=== PATIENT | male | born 2000 | race Hispanic/Latino ===

== ENCOUNTER → 2023-03-17 | Emergency (ER) | payer OTHER, SELFPAY ==
[~2023-03-17] MED LIST: FAMOTIDINE 20 MG/2 ML VIAL IV ONE; MAGNES/ALUMIN/SIMET 30ML UCUP ONE; NA CHLORIDE 0.9% 1,000 ML ONE
[2023-03-17 09:16] LABS: Absolute Lymphocytes (CBC) 2.1 K/uL (0.7-4.9); Hematocrit 45.1 % (39.6-49.0); Lymphocytes % 37.9 % (15.3-44.8); MCV 90.1 fL (80-100); MPV 7.8 fL (7.6-11.3); Platelets 268 thou/uL (152-406); RBC Red Blood Cell Count 5.01 M/uL (4.33-5.43)
[2023-03-17 09:34] LABS: Albumin 4.1 g/dL (3.4-5.0); Bilirubin Total 0.9 mg/dL (0.2-1.0); Potassium 3.8 mEq/L (3.5-5.1); Protein, Total 7.9 g/dL (6.4-8.2)
--- NOTE | 2023-03-17 09:41 | EDPHYS ---
Physician Documentation [facility] Name: Daniel Posey Age: 23 yrs Sex: Male : 2000 Arrival Date: 03/17/2023 Time: 08:47 Bed 8 Private MD: ED Physician Lupillo Chery HPI: 03/17 09:03 This 23 yrs old Male presents to ER via Ambulatory with complaints of ec2 Abdominal Pain. 09:03 Patient arrives today for evaluation of left-sided abdominal pain. Patient reports he ec2 has been having left-sided abdominal pain for the past 3 days. Patient reports no nausea or vomiting, reports no diarrheal symptoms. Patient reports no previous abdominal surgeries. Denies any cough and cold symptoms, did report some headache yesterday. States that he was given some medication for stomach that helped yesterday and subsequently pain returned shortly after. Reports no changes in symptoms with p.o. intake.. Historical: - Allergies: 08:54 No Known Allergies; iw - Home Meds: 08:54 None [Active]; iw - PMHx: 08:54 None; iw - PSHx: 08:54 None; iw - Immunization history:: Adult Immunizations up to date. - Social history:: Smoking status: Patient denies any tobacco usage or history of. ROS: 09:03 Constitutional: as per hpi ec2 Exam: 09:03 Constitutional: GEN: NAD Head: atraumatic Eyes: EOMI Ears: External ears are ec2 normal. CV: regular rate LUNGS: no respiratory distress ABD: non-distended, soft, not guarding, not rigid, minimally tender in the left upper and lower quadrant. SKIN: no evidence of rashes MSK: no evidence of trauma NEURO: moves all extremities equally Vital Signs: 08:54 BP 129 / 72; Pulse 67; Resp 16; Temp 98(O); Pulse Ox 100% on R/A; Weight 58.06 kg; iw Height 5 ft. 10 in. ; 09:17 BP 121 / 75; Pulse 52; Resp 16; Pulse Ox 100% on R/A; hb 10:05 BP 113 / 67; Pulse 58; Resp 14; Pulse Ox 100% ; ko1 08:54 Body Mass Index 18.37 (58.06 kg, 177.8 cm) iw MDM: 08:57 Patient medically screened. ec2 09:03 Data reviewed: vital signs. ED course: Patient arrives today due to concern for ec2 left-sided abdominal pain. Examination remarkable for well-appearing nontoxic individual is otherwise in no acute distress with a reassuring abdominal examination with minimal TTP to the left side of the abdomen. Will obtain lab work to evaluate for electrolyte disturbances as well as renal dysfunction, anemia, will treat the patient's symptoms with crystalloid, Pepcid and Maalox. Currently considering those above processes along with gastritis, lower suspicion for diverticulitis given the patient's age and no other risk factors.. 09:38 ED course: Metabolic profile is reassuring, CBC without leukocytosis or anemia evident. ec2 . 09:41 ED course: On reassessment patient reports improvement in his symptoms. Will discharge ec2 home, suspect gastritis causing his symptoms. Return precautions given.. 03/17 09:02 Order name: CBC with Diff; Complete Time: 09:37 ec2 03/17 09:02 Order name: CMP; Complete Time: 09:37 ec2 03/17 09:02 Order name: UAM ec2 Administered Medications: 09:12 Drug: NS 0.9% IV 1000 ml IV at 1 bolus Per protocol; 1000 mL bolus Route: IV; Rate: 1 ko1 bolus; Site: right antecubital; 10:07 Follow up: Response: No adverse reaction; IV Status: Completed infusion; IV Intake: ko1 1000ml 09:12 Drug: Famotidine IVP 10 mg IVP once; dilute with 10 mL 0.9% NaCl; give over 2 minutes ko1 Route: IVP; Site: right antecubital; 10:07 Follow up: Response: No adverse reaction; Marked relief of symptoms ko1 09:13 Drug: Alum-Mag Hydroxide-Simeth PO Suspension (200 mg-200 mg-20 mg/5 mL) 30 ml PO once ko1 Route: PO; 10:07 Follow up: Response: No adverse reaction ko1 Disposition Summary: 03/17/23 09:41 Discharge Ordered Notes: Location: Home ec2 Condition: Stable ec2 Diagnosis - Acute gastritis ec2 Followup: ec2 - With: Private Physician - When: - Reason: Recheck today's complaints Discharge Instructions: - Discharge Summary Sheet ec2 - Gastritis, Adult, [id number] ec2 Forms: - Work release form ec2 - Medication Reconciliation Form ec2 - Thank You Letter ec2 - Antibiotic Education ec2 - Prescription Opioid Use ec2 - Patient Portal Instructions ec2 - Leadership Thank You Letter ec2 Prescriptions: - Pepcid 20 mg Oral Tablet - take 1 tablet ORAL route once daily; 20 tablet; Refills: 0, Product Selection ec2 Permitted Signatures: Dispatcher [employer] Larissa Cardenas RN RN iw Verna Stockton RN RN ko1 Lupillo Chery MD MD ec2 Corrections: (The following items were deleted from the chart) 08:58 08:58 Pelvic Exam Setup ordered. ec2 ec2
--- NOTE | 2023-03-17 09:41 | ER ---
Nurse's Notes [facility] Name: Daniel Posey Age: 23 yrs Sex: Male : 2000 Arrival Date: 03/17/2023 Time: 08:47 Bed 8 Private MD: Diagnosis: Acute gastritis Presentation: 03/17 08:53 Chief complaint: Patient states: left sided abd pain X 3 days, this morning it was iw worse and he has a headache, not eating much , denies vomiting or diarrhea. Coronavirus screen: At this time, the client does not indicate any symptoms associated with coronavirus-19. Ebola Screen: Patient negative for fever greater than or equal to 101.5 degrees Fahrenheit, and additional compatible Ebola Virus Disease symptoms Patient denies exposure to infectious person. Patient denies travel to an Ebola-affected area in the 21 days before illness onset. No symptoms or risks identified at this time. Initial Sepsis Screen: Does the patient meet any 2 criteria? No. Patient's initial sepsis screen is negative. Does the patient have a suspected source of infection? No. Patient's initial sepsis screen is negative. Risk Assessment: Do you want to hurt yourself or someone else? Patient reports no desire to harm self or others. Onset of symptoms was March 14, 2023. 08:53 Method Of Arrival: Ambulatory iw 08:53 Acuity: CHRIS 3 iw Triage Assessment: 10:06 General: Appears in no apparent distress. Behavior is calm, cooperative, appropriate ko1 for age. Historical: - Allergies: 08:54 No Known Allergies; iw - Home Meds: 08:54 None [Active]; iw - PMHx: 08:54 None; iw - PSHx: 08:54 None; iw - Immunization history:: Adult Immunizations up to date. - Social history:: Smoking status: Patient denies any tobacco usage or history of. Screenin:00 [facility] ED Fall Risk Assessment (Adult) History of falling in the last 3 months, ko1 including since admission No falls in past 3 months (0 pts) Confusion or Disorientation No (0 pts) Intoxicated or Sedated No (0 pts) Impaired Gait No (0 pts) Mobility Assist Device Used No (0 pt) Altered Elimination No (0 pt) Score/Fall Risk Level 0 - 2 = Low Risk Oriented to surroundings, Maintained a safe environment, Educated pt \T\ family on fall prevention, incl call for assistance when getting out of bed, Assessed \T\ reinforced patient's understanding of fall precautions, Provided non-skid footwear, Hourly rounding (assess needs \T\ fall precautionary measures) done, Used ambulatory aids as needed (educated on \T\ assisted with), Used gait belt as appropriate. Abuse screen: Denies threats or abuse. Denies injuries from another. Nutritional screening: No deficits noted. Tuberculosis screening: No symptoms or risk factors identified. Assessment: 09:00 Pain: Complains of pain in left upper quadrant and left lower quadrant. Neuro: No ko1 deficits noted. Cardiovascular: No deficits noted. Respiratory: No deficits noted. GI: Bowel sounds present X 4 quads. Abd is soft and non tender X 4 quads. Reports lower abdominal pain. : No deficits noted. EENT: No deficits noted. Derm: No deficits noted. Musculoskeletal: No deficits noted. Vital Signs: 08:54 BP 129 / 72; Pulse 67; Resp 16; Temp 98(O); Pulse Ox 100% on R/A; Weight 58.06 kg; iw Height 5 ft. 10 in. ; 09:17 BP 121 / 75; Pulse 52; Resp 16; Pulse Ox 100% on R/A; hb 10:05 BP 113 / 67; Pulse 58; Resp 14; Pulse Ox 100% ; ko1 08:54 Body Mass Index 18.37 (58.06 kg, 177.8 cm) iw ED Course: 08:52 Patient arrived in ED. ts1 08:54 Triage completed. iw 08:54 Arm band placed on. iw 08:56 Verna Stockton, CATARINA is Primary Nurse. ko1 08:57 Lupillo Chery MD is Attending Physician. ec2 09:00 Patient has correct armband on for positive identification. Bed in low position. Call ko1 light in reach. Pulse ox on. NIBP on. Door closed. Noise minimized. Lights dimmed. Warm blanket given. 09:10 Inserted saline lock: 20 gauge in left antecubital area, using aseptic technique. Blood ko1 collected. 09:12 CMP Sent. ko1 09:12 CBC with Diff Sent. ko1 10:05 Provided Education on: na. ko1 10:05 No provider procedures requiring assistance completed. IV discontinued, intact, ko1 bleeding controlled, No redness/swelling at site. Pressure dressing applied. Administered Medications: 09:12 Drug: NS 0.9% IV 1000 ml IV at 1 bolus Per protocol; 1000 mL bolus Route: IV; Rate: 1 ko1 bolus; Site: right antecubital; : Follow up: Response: No adverse reaction; IV Status: Completed infusion; IV Intake: ko1 1000ml 09:12 Drug: Famotidine IVP 10 mg IVP once; dilute with 10 mL 0.9% NaCl; give over 2 minutes ko1 Route: IVP; Site: right antecubital; : Follow up: Response: No adverse reaction; Marked relief of symptoms ko1 09:13 Drug: Alum-Mag Hydroxide-Simeth PO Suspension (200 mg-200 mg-20 mg/5 mL) 30 ml PO once ko1 Route: PO; : Follow up: Response: No adverse reaction ko1 Medication: 09:00 VIS not applicable for this client. ko1 Intake: :07 IV: 1000ml; Total: 1000ml. ko1 Outcome: 09:41 Discharge ordered by . ec2 10:05 Discharged to home ambulatory, ko1 10:05 Condition: improved 10:05 Discharge instructions given to patient, Instructed on discharge instructions, follow up and referral plans. medication usage, Demonstrated understanding of instructions, follow-up care, medications, Prescriptions given X 1, 10:07 Patient left the ED. ko1 Signatures: Larissa Cordoba RN RN iw Autumn Rojas RN RN hb Oliver, Kathy, RN RN ko1 Stephany Renner PAS PAS ts1 Lupillo Chery MD MD ec2 Corrections: (The following items were deleted from the chart) 09:04 08:54 BP 129 / 72; Pulse 67bpm; Resp 16bpm; Pulse Ox 100% RA; 58.06 kg; Height 5 ft. 10 iw in.; BMI: 18.3; iw
[2023-03-17 13:06] VITALS: TEMP 98; O2SAT 100
[2023-03-17 13:13] VITALS: BP 113/67
== END ==
LOC: ER 08:47
DX: K29.00 Acute gastritis without bleeding (principal)
CPT/HCPCS: 36415; 80053; 85025; 96361; 96374; 99284; J7030

== ENCOUNTER 2023-08-18 12:10 | Emergency (ER) | payer SELFPAY ==
--- OUTSIDE RECORDS SUMMARY | 2023-08-18 12:12 | XMS REPORT | Continuity of Care Document ---
Author Name Unknown Address [address] [place] [address] [employer] Address [address] [place] [address] Care Team Providers Care Entertainment Dancer Name Role Phone Unavailable Unavailable Unavailable Results Test Description Test Time Test Comments Results Result Co mments Source
[2023-08-18 12:51] LABS: SARS-CoV-2 Antigen CONTROL BLUE LINE VIS/BG OK; SARS-CoV-2 Antigen Rapid Res Negative (Negative)
--- NOTE | 2023-08-18 13:42 | ER ---
Nurse's Notes [facility] Name: Daniel Posey Age: 23 yrs Sex: Male : 2000 Arrival Date: 08/18/2023 Time: 12:10 Bed IW1 Private MD: Diagnosis: Sore throat Presentation: 08/17 12:18 Chief complaint: Patient states: body aches, sore throat. Coronavirus screen: At this as6 time, the client does not indicate any symptoms associated with coronavirus-19. Ebola Screen: No symptoms or risks identified at this time. Initial Sepsis Screen: Does the patient meet any 2 criteria? No. Patient's initial sepsis screen is negative. Does the patient have a suspected source of infection? No. Patient's initial sepsis screen is negative. Risk Assessment: Do you want to hurt yourself or someone else? Patient reports no desire to harm self or others. Onset of symptoms was August 18, 2023. 12:18 Method Of Arrival: Ambulatory as6 12:18 Acuity: CHRIS 4 as6 Triage Assessment: 12:23 General: Appears in no apparent distress. slender, Behavior is calm, cooperative. as6 General: Reports feeling ill for fatigue for. Pain: Complains of pain in generalized. EENT: Reports pain when swallowing. Historical: - Allergies: 12:19 No Known Allergies; as6 - PMHx: 12:19 None; as6 - PSHx: 12:19 None; as6 - Immunization history:: Adult Immunizations up to date. - Infectious Disease History:: Denies. - Social history:: Smoking status: Reported history of juuling and/or vaping. Screenin:24 [facility] ED Fall Risk Assessment (Adult) History of falling in the last 3 months, as6 including since admission No falls in past 3 months (0 pts) Confusion or Disorientation No (0 pts) Intoxicated or Sedated No (0 pts) Impaired Gait No (0 pts) Mobility Assist Device Used No (0 pt) Altered Elimination No (0 pt) Score/Fall Risk Level 0 - 2 = Low Risk Oriented to surroundings, Maintained a safe environment, Educated pt \T\ family on fall prevention, incl call for assistance when getting out of bed, Assessed \T\ reinforced patient's understanding of fall precautions. Abuse screen: Denies threats or abuse. Denies injuries from another. Nutritional screening: No deficits noted. Tuberculosis screening: No symptoms or risk factors identified. Vital Signs: 12:19 BP 119 / 77; Pulse 76; Resp 18 S; Temp 97.6(TE); Pulse Ox 100% on R/A; Weight 58.97 kg as6 (R); Height 5 ft. 10 in. (R); Pain 6/10; 12:19 Body Mass Index 18.65 (58.97 kg, 177.8 cm) as6 12:19 Pain Scale: Adult as6 ED Course: 12:13 Patient arrived in ED. rg4 12:14 Link Castro DO is Attending Physician. ms3 12:18 Triage completed. as6 12:18 Arm band placed on. as6 12:24 Patient has correct armband on for positive identification. Bed in low position. Call as6 light in reach. 13:41 Jeffrey Willard DO is Referral Physician. ms3 13:45 Provided Education on: OCT medications to manage viral illness . as6 13:45 No provider procedures requiring assistance completed. Patient did not have IV access as6 during this emergency room visit. Administered Medications: No medications were administered Medication: 12:24 VIS not applicable for this client. as6 Outcome: 13:41 Discharge ordered by . ms3 13:45 Discharged to home ambulatory, as6 13:45 Condition: stable 13:45 Discharge instructions given to patient, 13:46 Patient left the ED. as6 Signatures: Kavita Oneil rg4 Link Castro DO DO ms3 Dannie Clinton, RN RN as6
--- NOTE | 2023-08-18 13:43 | EDPHYS ---
Physician Documentation [facility] Name: Daniel Posey Age: 23 yrs Sex: Male : 2000 Arrival Date: 08/18/2023 Time: 12:10 Bed IW1 Private MD: ED Physician Link Castro HPI: 08/17 14:32 This 23 yrs old Male presents to ER via Ambulatory with complaints of Sore ms3 Throat. 14:32 23-year-old male with no past medical history presents emergency department for sore ms3 throat, body aches, abdominal pain that began yesterday. Patient states his overall discomfort is a 6/10. He endorses cough and rhinorrhea. Patient denies any alleviating or inciting factors. Historical: - Allergies: 12:19 No Known Allergies; as6 - PMHx: 12:19 None; as6 - PSHx: 12:19 None; as6 - Immunization history:: Adult Immunizations up to date. - Infectious Disease History:: Denies. - Social history:: Smoking status: Reported history of juuling and/or vaping. ROS: 14:32 Constitutional: Negative for fever, and chills. Neck: Negative for injury, pain, and ms3 swelling, Cardiovascular: Negative for chest pain, and palpitations. Respiratory: Negative for shortness of breath, cough, wheezing, and pleuritic chest pain, 14:32 ENT: Positive for sore throat, 14:32 Abdomen/GI: Positive for abdominal pain, 14:32 All other systems are negative, Exam: 14:32 Constitutional: This is a well developed, well nourished patient who is awake, alert, ms3 and in no acute distress. Head/Face: Normocephalic, atraumatic. Neck: Trachea midline, no cervical lymphadenopathy. Supple, full range of motion without nuchal rigidity, or vertebral point tenderness. No Meningismus. Chest/axilla: Normal chest wall appearance and motion. Nontender with no deformity. Cardiovascular: Regular rate and rhythm with a normal S1 and S2. No gallops, murmurs, or rubs. Normal PMI, no JVD. No pulse deficits. Respiratory: Lungs have equal breath sounds bilaterally, clear to auscultation and percussion. No rales, rhonchi or wheezes noted. No increased work of breathing, no retractions or nasal flaring. Abdomen/GI: Soft, non-tender, with normal bowel sounds. No distension or tympany. No guarding or rebound. No evidence of tenderness throughout. Skin: Warm, dry with normal turgor. Normal color with no rashes, no lesions, and no evidence of cellulitis. MS/ Extremity: Pulses equal, no cyanosis. Neurovascular intact. Full, normal range of motion. Vital Signs: 12:19 BP 119 / 77; Pulse 76; Resp 18 S; Temp 97.6(TE); Pulse Ox 100% on R/A; Weight 58.97 kg as6 (R); Height 5 ft. 10 in. (R); Pain 6/10; 12:19 Body Mass Index 18.65 (58.97 kg, 177.8 cm) as6 12:19 Pain Scale: Adult as6 MDM: 12:21 Patient medically screened. ms3 14:32 Differential diagnosis: bronchitis, group A strep tonsillitis, upper respiratory ms3 infection, viral syndrome COVID versus flu. Data reviewed: vital signs, nurses notes, lab test result(s), and as a result, I will discharge patient. Counseling: I had a detailed discussion with the patient and/or guardian regarding the historical points, exam findings, and any diagnostic results supporting the discharge/admit diagnosis, lab results, the need for outpatient follow up, to return to the emergency department if symptoms worsen or persist or if there are any questions or concerns that arise at home. Special discussion: I discussed with the patient/guardian in detail that at this point there is no indication for admission to the hospital. It is understood, however, that if the symptoms persist or worsen the patient needs to return immediately for re-evaluation. ED course: Discussed labs with patient. Patient to follow-up with primary care physician 2 to 3 days. Patient understands and agrees with plan. All questions were answered. Return precautions discussed include worsening symptoms, or any other concerns. On reevaluation patient is alert and oriented x 4, no apparent distress, nontoxic-appearing, ambulatory in the emergency department. 08/17 12:19 Order name: Influenza Screen (a \T\ B); Complete Time: 13:21 as6 08/17 12:19 Order name: SARS RAPID; Complete Time: 13:21 as6 08/17 12:19 Order name: Strep; Complete Time: 13:21 as6 08/17 12:47 Order name: Throat Culture EDMS Administered Medications: No medications were administered Disposition Summary: 08/18/23 13:41 Discharge Ordered Notes: Location: Home ms3 Condition: Stable ms3 Diagnosis - Sore throat ms3 Followup: ms3 - With: Jeffrey Willard DO - When: 2 - 3 days - Reason: Recheck today's complaints Discharge Instructions: - Discharge Summary Sheet ms3 - Viral Illness, Adult ms3 Forms: - Work release form iw - Medication Reconciliation Form ms3 - Antibiotic Education ms3 - Prescription Opioid Use ms3 - Patient Portal Instructions ms3 - Leadership Thank You Letter ms3 Signatures: Dispatcher [employer] EDLink Manuel DO DO ms3 Dannie Clinton, RN RN as6
[2023-08-18 14:24] VITALS: BP 119/77; TEMP 97.6; O2SAT 100
== END 2023-08-18 13:46 | disposition home or self-care (01) ==
LOC: ER 12:10
DX: J02.9 Acute pharyngitis, unspecified (principal); Z11.52 Encounter for screening for COVID-19
CPT/HCPCS: 36415; 87070; 87081; 87804; 87811; 99282

== ENCOUNTER 2023-08-30 07:42 | Emergency (ER) | payer SELFPAY ==
--- OUTSIDE RECORDS SUMMARY | 2023-08-30 07:44 | XMS REPORT | Continuity of Care Document ---
Author Name Unknown Address [address] [place] [address] [employer] Address [address] [place] [address] Care Team Providers Care Forex Trader Name Role Phone Unavailable Unavailable Unavailable Results Test Description Test Time Test Comments Results Result Co mments Source
[2023-08-30] MEDS ORDERED: ONDANSETRON 4 MG/2 ML VIAL ONE (08:08)
[2023-08-30] MEDS ORDERED: NA CHLORIDE 0.9% 1,000 ML ONE (08:08)
[2023-08-30 08:43] LABS: Absolute Lymphocytes (CBC) 1.4 K/uL (0.7-4.9); Absolute Monocytes 0.7 K/uL (0.1-1.3); Absolute Neutrophil 4.1 K/uL (1.8-8.0); Basophils % 0.4 % (0-1.3); Eosinophils % 0.2 % (0-4.4); Hematocrit 43.1 % (39.6-49.0); Hemoglobin 14.7 g/dL (13.6-17.9); Lymphocytes % 22.2 % (15.3-44.8); MCH 30.4 pg (27.0-35.0); MCV 89.2 fL (80-100); MPV 8.1 fL (7.6-11.3); Monocytes % 11.5 % (3.3-12.3); Neutrophils % 65.7 % (41.7-73.7); Platelets 241 thou/uL (152-406); RBC Red Blood Cell Count 4.83 M/uL (4.33-5.43); Red Cell Distribution Width 12.4 % (12.1-15.2)
--- NOTE | 2023-08-30 08:49 | RAD REPORT ---
EXAM DESCRIPTION: CTAbdomen Pelvis W Contrast - 08/30/2023 8:40 am CLINICAL HISTORY: Abdominal pain. Abd pain;Nausea / vomiting COMPARISON: No comparisons TECHNIQUE: Biphasic CT imaging of the abdomen and pelvis was performed with 100 ml non-ionic IV cont rast. All CT scans are performed using dose optimization technique as appropriate and may include automated exposure control or mA/KV adjustment according to patient size. FINDINGS: The lung bases are clear. The liver, spleen, pancreas, adrenal glands and kidneys are within normal limits. No bowel obstruction, free air, free fluid or abscess. The appendix is not identified as a discrete structure, however, no secondary findings of appendicitis are identified. Small volume of pelvic ena e fluid. No evidence of significant lymphadenopathy. No suspicious bony findings. IMPRESSION: No acute intra-abdominal or pelvic finding. Small volume of pelvic free fluid.
[2023-08-30 09:03] LABS: Albumin 3.8 g/dL (3.4-5.0); Anion Gap 6.8 mEq/L (5.0-15.0); Bilirubin Total 0.8 mg/dL (0.2-1.0); Globulin 3.8 g/dL (2.3-3.5); Potassium 3.8 mEq/L (3.5-5.1); Protein, Total 7.6 g/dL (6.4-8.2)
--- NOTE | 2023-08-30 09:19 | EDPHYS ---
Physician Documentation [facility] Name: Daniel Posey Age: 23 yrs Sex: Male : 2000 Arrival Date: 08/30/2023 Time: 07:42 Bed 19 Private MD: ED Physician Duane Dalton HPI: 08/29 09:14 This 23 yrs old Male presents to ER via Ambulatory with complaints of Vomiting.rn 09:14 The patient presents to the emergency department with nausea, vomiting, diarrhea. rn Onset: The symptoms/episode began/occurred 3 day(s) ago. Possible causes: unknown. The symptoms are aggravated by nothing. The symptoms are alleviated by nothing. Associated signs and symptoms: Pertinent positives: diarrhea, nausea, vomiting, Pertinent negatives: abdominal pain, fever, GI bleeding. Severity of symptoms: At their worst the symptoms were moderate in the emergency department the symptoms have improved. The patient has not experienced similar symptoms in the past. Patient reports 3 days of nausea/vomiting/diarrhea. No current abdominal pain. States brother is sick with similar symptoms as well. States Imodium is helping with diarrhea but still vomiting.. Historical: - Allergies: 08:05 No Known Allergies; ap3 - Home Meds: 08:05 None [Active]; ap3 - PMHx: 08:05 None; ap3 - Immunization history:: Client reports having NOT received the Covid vaccine. - Infectious Disease History:: Denies. - Social history:: Smoking status: Reported history of juuling and/or vaping. - Family history:: not pertinent. - Hospitalizations: : No recent hospitalization is reported. ROS: 09:14 Constitutional: Negative for fever, chills, and weight loss, Cardiovascular: Negative rn for chest pain, palpitations, and edema, Respiratory: Negative for shortness of breath, cough, wheezing, and pleuritic chest pain, Abdomen/GI: Positive for vomiting and diarrhea MS/Extremity: Negative for injury and deformity, Skin: Negative for injury, rash, and discoloration, Neuro: Negative for headache, weakness, numbness, tingling, and seizure, Exam: 09:14 Constitutional: This is a well developed, well nourished patient who is awake, alert, rn and in no acute distress. Cardiovascular: Regular rate and rhythm. No pulse deficits. Respiratory: No increased work of breathing, no retractions or nasal flaring. Abdomen/GI: Soft, nontender, no guarding or rebound Vital Signs: 08:04 BP 126 / 54; Pulse 66; Resp 18; Temp 97.8(O); Pulse Ox 100% ; Weight 58.97 kg; Pain ap3 0/10; 08:46 BP 120 / 77; Pulse 62; Resp 17; Pulse Ox 99% on R/A; rs5 09:22 BP 118 / 76; Pulse 65; Resp 18; Pulse Ox 99% on R/A; rs5 08:04 Pain Scale: Adult ap3 MDM: 07:47 Patient medically screened. rn 09:14 Differential diagnosis: Nonspecific abd pain, gastritis, cholecystitis, pancreatitis, rn appendicitis, diverticulitis, viral gastroenteritis, gastroenteritis. Data reviewed: vital signs, nurses notes, lab test result(s), radiologic studies, CT scan, and as a result, I will discharge patient. Counseling: I had a detailed discussion with the patient and/or guardian regarding the historical points, exam findings, and any diagnostic results supporting the discharge/admit diagnosis, lab results, radiology results, the need for outpatient follow up, to return to the emergency department if symptoms worsen or persist or if there are any questions or concerns that arise at home. Special discussion: Based on the patient's Hx, exam, and Dx evaluation, there is no indication for emergent surgery or inpatient Tx. It is understood by the patient/guardian that if the Sx's persist or worsen they need to return immediately for re-evaluation. I discussed with the patient/guardian in detail that at this point there is no indication for admission to the hospital. It is understood, however, that if the symptoms persist or worsen the patient needs to return immediately for re-evaluation. ED course: No acute findings and workup. I have personally reviewed all of the results, including but not limited to blood tests and imaging deemed necessary to safely discharge this patient at this time. All results given to and printed out for patient. I personally went over all the results with the patient and answered all questions. Patient will follow-up with PCP and or specialist as discussed. Return precautions given and understood.. 08/29 08:03 Order name: CBC with Diff; Complete Time: 08:55 rn 08/29 08:03 Order name: CMP; Complete Time: 09:06 rn 08/29 08:03 Order name: Lipase; Complete Time: 09:06 rn 08/29 08:03 Order name: CT Abd/Pelvis - IV Contrast Only; Complete Time: 08:55 rn 08/29 08:03 Order name: IV Saline Lock; Complete Time: 08:41 rn 08/29 08:03 Order name: Labs collected and sent; Complete Time: 08:41 rn Administered Medications: 08:15 Drug: NS 0.9% IV 1000 ml IV at 1 bolus Per protocol; 1000 mL bolus Route: IV; Rate: 1 rs5 bolus; Site: left antecubital; 08:30 Follow up: Response: No adverse reaction rs5 08:15 Drug: Ondansetron IVP 4 mg IVP once; over 2 minutes Route: IVP; Site: left antecubital; rs5 08:30 Follow up: Response: No adverse reaction; Nausea is decreased rs5 Disposition Summary: 08/30/23 09:18 Discharge Ordered Notes: Location: Home rn Problem: new rn Symptoms: have improved rn Condition: Stable rn Diagnosis - Nausea with vomiting, unspecified rn - Diarrhea, unspecified rn Followup: rn - With: Private Physician - When: As needed - Reason: Recheck today's complaints, Re-evaluation by your physician Discharge Instructions: - Discharge Summary Sheet rn - Diarrhea, Adult rn - Nausea and Vomiting, Adult rn Forms: - Medication Reconciliation Form rn - Antibiotic yarn washer - Prescription Opioid Use rn - Patient Portal Instructions rn - Leadership Thank You Letter rn Prescriptions: - ondansetron 4 mg Oral Tablet,disintegrating - take 1 tablet ORAL route every 8 hours As needed; 12 tablet; Refills: 0, rn Product Selection Permitted Signatures: Dispatcher [employer] EDMS Duane Dalton MD MD rn Prokisch, Amanda, RN RN ap3 Haile Magallanes RN RN rs5 Corrections: (The following items were deleted from the chart) 08:04 08:04 Abdomen Pelvis W [id number] ordered. EDMS EDMS
--- NOTE | 2023-08-30 09:19 | ER ---
Nurse's Notes [facility] Name: Daniel Posey Age: 23 yrs Sex: Male : 2000 Arrival Date: 08/30/2023 Time: 07:42 Bed 19 Private MD: Diagnosis: Nausea with vomiting, unspecified;Diarrhea, unspecified Presentation: 08/29 08:04 Chief complaint: Patient states: he has been having vomiting and diarrhea for 3 days ap3 but is feeling much better today. patient states that he has been taking Imodium during this time. Coronavirus screen: At this time, the client does not indicate any symptoms associated with coronavirus-19. Ebola Screen: No symptoms or risks identified at this time. Initial Sepsis Screen: Does the patient meet any 2 criteria? No. Patient's initial sepsis screen is negative. Does the patient have a suspected source of infection? No. Patient's initial sepsis screen is negative. Risk Assessment: Do you want to hurt yourself or someone else? Patient reports no desire to harm self or others. Onset of symptoms was August 27, 2023. 08:04 Method Of Arrival: Ambulatory ap3 08:04 Acuity: CHRIS 3 ap3 Triage Assessment: 08:06 General: Appears in no apparent distress. Behavior is calm, cooperative, appropriate ap3 for age. Pain: Denies pain. Neuro: Level of Consciousness is awake, alert, obeys commands, Oriented to person, place, time, situation. Cardiovascular: Patient's skin is warm and dry. Respiratory: Airway is patent Respiratory effort is even, unlabored, Respiratory pattern is regular, symmetrical. GI: Reports diarrhea, nausea, vomiting. Historical: - Allergies: 08:05 No Known Allergies; ap3 - Home Meds: 08:05 None [Active]; ap3 - PMHx: 08:05 None; ap3 - Immunization history:: Client reports having NOT received the Covid vaccine. - Infectious Disease History:: Denies. - Social history:: Smoking status: Reported history of juuling and/or vaping. - Family history:: not pertinent. - Hospitalizations: : No recent hospitalization is reported. Screenin:06 [facility] ED Fall Risk Assessment (Adult) History of falling in the last 3 months, ap3 including since admission No falls in past 3 months (0 pts) Confusion or Disorientation No (0 pts) Intoxicated or Sedated No (0 pts) Impaired Gait No (0 pts) Mobility Assist Device Used No (0 pt) Altered Elimination No (0 pt) Score/Fall Risk Level 0 - 2 = Low Risk Oriented to surroundings, Maintained a safe environment, Educated pt \T\ family on fall prevention, incl call for assistance when getting out of bed, Assessed \T\ reinforced patient's understanding of fall precautions, Provided non-skid footwear, Hourly rounding (assess needs \T\ fall precautionary measures) done, Used ambulatory aids as needed (educated on \T\ assisted with), Used gait belt as appropriate. Abuse screen: Denies threats or abuse. Nutritional screening: No deficits noted. Tuberculosis screening: No symptoms or risk factors identified. Assessment: 07:51 General: Appears in no apparent distress. comfortable, Behavior is calm, cooperative. rs5 Pain: Denies pain. Neuro: Level of Consciousness is awake, alert, obeys commands, Oriented to person, place, time, situation. Cardiovascular: Rhythm is regular. Respiratory: Airway is patent Respiratory effort is even, unlabored, Respiratory pattern is regular, symmetrical. GI: Abdomen is flat, non-distended, Abd is soft and non tender X 4 quads. Reports nausea. : No signs and/or symptoms were reported regarding the genitourinary system. EENT: No signs and/or symptoms were reported regarding the EENT system. Derm: Skin is intact, Skin is dry, Skin is normal. 07:51 Musculoskeletal: Range of motion: intact in all extremities. rs5 08:46 Reassessment: No changes from previously documented assessment. rs5 09:25 Reassessment: No changes from previously documented assessment. rs5 Vital Signs: 08:04 BP 126 / 54; Pulse 66; Resp 18; Temp 97.8(O); Pulse Ox 100% ; Weight 58.97 kg; Pain ap3 0/10; 08:46 BP 120 / 77; Pulse 62; Resp 17; Pulse Ox 99% on R/A; rs5 09:22 BP 118 / 76; Pulse 65; Resp 18; Pulse Ox 99% on R/A; rs5 08:04 Pain Scale: Adult ap3 ED Course: 07:47 Patient arrived in ED. mg5 07:47 Duane Dalton MD is Attending Physician. rn 08:05 Haile Magallanes, RN is Primary Nurse. rs5 08:05 Triage completed. ap3 08:07 Arm band placed on right wrist. ap3 08:07 Patient has correct armband on for positive identification. Call light in reach. Side ap3 rails up X 1. Pulse ox on. NIBP on. 08:41 CT Abd/Pelvis - IV Contrast Only In Process Unspecified. EDMS 08:46 No provider procedures requiring assistance completed. rs5 09:30 IV discontinued, intact, bleeding controlled, No redness/swelling at site. Pressure rs5 dressing applied. Administered Medications: 08:15 Drug: NS 0.9% IV 1000 ml IV at 1 bolus Per protocol; 1000 mL bolus Route: IV; Rate: 1 rs5 bolus; Site: left antecubital; 08:30 Follow up: Response: No adverse reaction rs5 08:15 Drug: Ondansetron IVP 4 mg IVP once; over 2 minutes Route: IVP; Site: left antecubital; rs5 08:30 Follow up: Response: No adverse reaction; Nausea is decreased rs5 Medication: 08:46 VIS not applicable for this client. rs5 Outcome: 09:18 Discharge ordered by . rn 09:30 Discharged to home ambulatory, rs5 09:30 Condition: stable 09:30 Discharge instructions given to patient, family, Instructed on discharge instructions, follow up and referral plans. medication usage, Demonstrated understanding of instructions, follow-up care, medications, Prescriptions given X 1, 09:33 Patient left the ED. rs5 Signatures: Dispatcher [employer] EDMS Duane Dalton MD MD rn Prokisch, Amanda, RN RN ap3 Haile Magallanes, CATARINA RN rs5 Bri Last mg5
[2023-08-30 09:47] VITALS: BP 120/77; TEMP 97.8; O2SAT 99
== END 2023-08-30 09:33 | disposition home or self-care (01) ==
LOC: ER 07:42
DX: R11.2 Nausea with vomiting, unspecified (principal); R19.7 Diarrhea, unspecified
CPT/HCPCS: 36415; 74177; 80053; 83690; 85025; J2405; J7030; Q9967